=== PATIENT | male | born 1935 | race Caucasian/White ===

== ENCOUNTER 2018-12-03 20:40 | Inpatient (IN) | payer MEDICARE, OTHER ==
[~2018-12-03] VITALS: Ht 182.9 cm; Wt 95.6 kg
[2018-12-03] MEDS ORDERED: SODIUM CHLORIDE 0.9% 1,000 ML IV ONE (21:50)
[2018-12-03] MEDS ORDERED: MORPHINE SULFATE 4 MG/ML, 1ML IVPush PRN (22:00)
[2018-12-03] MEDS ORDERED: ONDANSETRON 2MG/ML, 2ML IVPush ONE (22:00)
[2018-12-03] MEDS ORDERED: SODIUM CHLORIDE FLUSH 10ML SYR IVF ONE (22:00)
[2018-12-03] MEDS ORDERED: OTC STOOL SOFTNER (22:16)
[2018-12-03] MEDS ORDERED: PARO40TA3 PO (22:16)
[2018-12-03] MEDS ORDERED: FESO8TAB PO (22:16)
[2018-12-03] MEDS ORDERED: TRAM50TA2 PO (22:16)
[2018-12-03] MEDS ORDERED: MULTIVITAMIN (22:16)
[2018-12-03] MEDS ORDERED: EZET1TAB64 PO (22:16)
[2018-12-03] MEDS ORDERED: ASPI-515 PO (22:16)
[2018-12-03] MEDS ORDERED: ACYC-113 PO (22:16)
[2018-12-03] MEDS ORDERED: TAMS-11 PO (22:16)
[2018-12-03] MEDS ORDERED: HYDR1TAB13 PO (22:16)
[2018-12-03] MEDS ORDERED: D3 (22:16)
[2018-12-03] MEDS ORDERED: ROPI1TAB2 PO (22:16)
[2018-12-03] MEDS ORDERED: B12 (22:16)
[2018-12-03] MEDS ORDERED: FINA5TAB4 PO (22:16)
[2018-12-03] MEDS ORDERED: CLOP75TA52 PO (22:16)
[2018-12-03] MEDS ORDERED: MORPHINE SULFATE 4 MG/ML, 1ML ONE (22:18)
[2018-12-03] MEDS ORDERED: ONDANSETRON 2MG/ML, 2ML ONE (22:18)
[2018-12-03 23:00] VITALS: BP 126/77
[2018-12-03] MEDS ORDERED: ONDANSETRON ODT 4 MG PO PRN (23:00)
[2018-12-03] MEDS ORDERED: POLYETHYLENE GLYCOL 17 GM PACKET PO PRN (23:00)
[2018-12-03] MEDS ORDERED: BISACODYL 10 MG SUPP PR PRN (23:00)
[2018-12-03] MEDS: SODIUM CHLORIDE FLUSH 10ML SYR IVF SCH (23:00)
[2018-12-04 00:26] VITALS: BP 114/61
[2018-12-04] MEDS: SODIUM CHLORIDE 0.9% 1,000 ML IV SCH ×2 (01:30→20:35)
[2018-12-04 04:17] LABS: BASOPHILS # (AUTO) 0.02 x10^3/uL (0-0.1); BASOPHILS % (AUTO) 0 % (0-1); EOSINOPHILS # (AUTO) 0.06 x10^3/uL (0-0.4); EOSINOPHILS % (AUTO) 1 % (1-7); LYMPHOCYTES # (AUTO) 1.28 x10^3/uL (1-3.4); LYMPHOCYTES % (AUTO) 24 % (22-44); MD NO; MEAN CORPUSCULAR HEMOGLOBIN 31.5 pg (27.5-34.5); MEAN CORPUSCULAR HGB CONC 32.3 g/dL (33.2-36.2); MEAN CORPUSCULAR VOLUME 97.5 fL (81-97); MEAN PLATELET VOLUME 6.7 fL (7.4-10.4); MONOCYTES # (AUTO) 0.88 x10^3/uL (0.2-0.8); MONOCYTES % (AUTO) 17 % (2-9); NEUTROPHILS # (AUTO) 3.05 x10^3/uL (1.8-6.8); NEUTROPHILS % (AUTO) 58 % (42-75); PLATELET COUNT 278 x10^3/uL (130-400); RED BLOOD COUNT 4.09 x10^6/uL (4.38-5.82); RED CELL DISTRIBUTION WIDTH 14.1 % (9.4-14.8)
[2018-12-04 04:23] LABS: ALBUMIN 2.8 g/dL (3.4-5.0); ANION GAP 3 mmol/L (5-15); CALCIUM 8.7 mg/dL (8.5-10.1); CHLORIDE 105 mmol/L (98-107)
[2018-12-04 04:27] LABS: ALANINE AMINOTRANSFERASE 25 U/L (12-78); ALKALINE PHOSPHATASE 95 U/L (45-117); BILIRUBIN,TOTAL 0.5 mg/dL (0.2-1.0); CREATININE 0.86 mg/dL (0.7-1.3); TOTAL PROTEIN 6.4 g/dL (6.4-8.2)
[2018-12-04 07:58] VITALS: BP 139/80
[2018-12-04] MEDS: ROPINIROLE 1MG TABLET PO SCH (08:04)
[2018-12-04] MEDS: EZETIMIBE 10 MG TABLET PO SCH (08:04)
[2018-12-04] MEDS: PAROXETINE 20 MG TABLET PO SCH (08:05)
[2018-12-04] MEDS: FINASTERIDE 5 MG TABLET PO SCH (08:05)
[2018-12-04] MEDS: TAMSULOSIN 0.4 MG CAP.ER.24H PO SCH (08:05)
[2018-12-04] MEDS: ACYCLOVIR 200 MG CAPSULE PO SCH (08:06)
[2018-12-04] MEDS: SIMVASTATIN 40 MG TABLET PO SCH (08:06)
[2018-12-04] MEDS: SODIUM CHLORIDE FLUSH 10ML SYR IVF SCH ×2 (08:08→20:35)
[2018-12-04] MEDS: FESOTERODINE FUMARATE 8 MG HOMEMEDPO SCH (08:08)
[2018-12-04 10:16] LABS: PROTHROMBIN TIME 10.5 Seconds (9.6-11.5)
[2018-12-04] MEDS: METHOCARBAMOL 500 MG TABLET PO PRN (12:00)
[2018-12-04] MEDS: HYDROcodone/APAP 5/325 TABLET PO PRN ×3 (13:50→22:39)
[2018-12-04 15:16] VITALS: BP 124/71
[2018-12-04 19:30] VITALS: BP 134/74
[2018-12-05] VITALS: BP 148/78
[2018-12-05 06:40] VITALS: BP 136/77
[2018-12-05] MEDS ORDERED: BUPIVACAINE/EPI 0.5% 1:200K ONE (08:06)
[2018-12-05] MEDS ORDERED: THROMBIN 20,000 UNIT VIAL TP ONE (08:06)
[2018-12-05] MEDS ORDERED: BACITRACIN 50,000 UNIT ONE (08:07)
[2018-12-05] MEDS ORDERED: BACITRACIN ZINC OINT 500U/GM, 0.9 GM ONE (08:07)
[2018-12-05] MEDS ORDERED: MIDAZOLAM 1 MG/ML, 2ML ONE (08:30)
[2018-12-05] MEDS ORDERED: FENTANYL PF 250 MCG/5ML ONE (08:30)
[2018-12-05] MEDS ORDERED: CEFAZOLIN 1,000 MG ONE ×2 (08:32)
[2018-12-05] MEDS ORDERED: WATER-INJECTION,STERILE 10 ML IV ONE (08:32)
[2018-12-05] MEDS ORDERED: PROPOFOL 10 MG/ML, 20ML ONE (08:33)
[2018-12-05] MEDS ORDERED: LIDOCAINE-MPF 2% ,5ML ONE (08:33)
[2018-12-05 08:57] LABS: PLATELET (PFA) 272 x10^3/uL (130-400)
[2018-12-05] MEDS: ACYCLOVIR 200 MG CAPSULE PO SCH (09:00)
[2018-12-05] MEDS: FINASTERIDE 5 MG TABLET PO SCH (09:00)
[2018-12-05] MEDS: EZETIMIBE 10 MG TABLET PO SCH (09:00)
[2018-12-05] MEDS: ROPINIROLE 1MG TABLET PO SCH (09:00)
[2018-12-05] MEDS: TAMSULOSIN 0.4 MG CAP.ER.24H PO SCH (09:00)
[2018-12-05] MEDS: PAROXETINE 20 MG TABLET PO SCH (09:00)
[2018-12-05] MEDS: SODIUM CHLORIDE FLUSH 10ML SYR IVF SCH ×2 (09:00→21:00)
[2018-12-05] MEDS: SIMVASTATIN 40 MG TABLET PO SCH (09:00)
[2018-12-05] MEDS: FESOTERODINE FUMARATE 8 MG HOMEMEDPO SCH (09:00)
[2018-12-05] MEDS ORDERED: ONDANSETRON 2MG/ML, 2ML ONE (09:05)
[2018-12-05] MEDS ORDERED: DEXAMETHASONE 4 MG/ML, 1ML ONE (09:05)
[2018-12-05] MEDS: SODIUM CHLORIDE 0.9% 1,000 ML IV SCH ×3 (09:11→20:24)
[2018-12-05] MEDS ORDERED: BUPIVACAINE/EPI 0.5% 1:200K INFIL ONE (10:03)
[2018-12-05] MEDS ORDERED: ROCURONIUM 10MG/ML,5ML ONE (10:06)
[2018-12-05] MEDS ORDERED: MEPERIDINE/PF 100 MG/ML ONE (10:20)
[2018-12-05] MEDS ORDERED: HYDROmorphone 2 MG/ML, 1ML IVPush PRN ×2 (11:00→16:00)
[2018-12-05] MEDS ORDERED: ACETAMINOPHEN 325 MG TABLET PO PRN ×2 (11:00→16:00)
[2018-12-05] MEDS ORDERED: MEPERIDINE/PF 25MG/0.5ML IVPush PRN (11:00)
[2018-12-05] MEDS ORDERED: FENTANYL PF 100 MCG/2ML IV PRN (11:00)
[2018-12-05] MEDS ORDERED: PROMETHAZINE 25 MG/ML, 1ML IV PRN (11:00)
[2018-12-05] MEDS ORDERED: hydrALAzine 20 MG/ML, 1ML IV PRN ×2 (11:00→16:00)
[2018-12-05] MEDS ORDERED: HALOPERIDOL 5 MG/ML IV PRN (11:00)
[2018-12-05] MEDS ORDERED: METHOCARBAMOL 1000MG/10 ML IV PRN (11:00)
[2018-12-05] MEDS ORDERED: OXYcodone 5 MG/5 ML ORAL.SOL UDC PO PRN (11:00)
[2018-12-05] MEDS ORDERED: SUGAMMADEX 200 MG/2 ML IVPush ONE (12:07)
[2018-12-05] MEDS ORDERED: OXYcodone 5 MG/5 ML ORAL.SOL UDC ONE (13:18)
[2018-12-05] MEDS ORDERED: DIPHENHYDRAMINE 25 MG CAPSULE PO PRN (16:00)
[2018-12-05] MEDS ORDERED: ACETAMINOPHEN 650 MG SUPP PR PRN (16:00)
[2018-12-05] MEDS ORDERED: ENALAPRILAT 1.25 MG/ML, 2ML IV PRN (16:00)
[2018-12-05] MEDS ORDERED: DIPHENHYDRAMINE 50 MG/ML, 1ML IV PRN (16:00)
[2018-12-05] MEDS: CEFAZOLIN PMX 1GM/50ML 50 ML IVPB SCH (17:09)
[2018-12-05 21:14] VITALS: BP 148/82
[2018-12-06 00:40] VITALS: BP 123/76
[2018-12-06] MEDS: CEFAZOLIN PMX 1GM/50ML 50 ML IVPB SCH (01:13)
[2018-12-06 04:37] VITALS: BP 136/70
[2018-12-06 05:35] LABS: CHLORIDE 106 mmol/L (98-107); MEAN CORPUSCULAR HGB CONC 32.9 g/dL (33.2-36.2); MEAN CORPUSCULAR VOLUME 97.3 fL (81-97); MEAN PLATELET VOLUME 6.7 fL (7.4-10.4); PLATELET COUNT 293 x10^3/uL (130-400); RED BLOOD COUNT 3.86 x10^6/uL (4.38-5.82); RED CELL DISTRIBUTION WIDTH 14.2 % (9.4-14.8)
[2018-12-06 05:41] LABS: ALANINE AMINOTRANSFERASE 21 U/L (12-78); ALBUMIN 2.1 g/dL (3.4-5.0); ALKALINE PHOSPHATASE 74 U/L (45-117); ANION GAP 5 mmol/L (5-15); BILIRUBIN,TOTAL 0.3 mg/dL (0.2-1.0); CALCIUM 8.3 mg/dL (8.5-10.1); CREATININE 0.79 mg/dL (0.7-1.3)
[2018-12-06] MEDS: HYDROcodone/APAP 5/325 TABLET PO PRN (05:47)
[2018-12-06 06:19] LABS: BASOPHILS # (AUTO) 0.01 x10^3/uL (0-0.1); BASOPHILS % (AUTO) 0 % (0-1); EOSINOPHILS % (AUTO) 0 % (1-7); LYMPHOCYTES # (AUTO) 0.78 x10^3/uL (1-3.4); LYMPHOCYTES % (AUTO) 8 % (22-44); MD SCAN; MONOCYTES # (AUTO) 1.17 x10^3/uL (0.2-0.8); MONOCYTES % (AUTO) 12 % (2-9); NEUTROPHILS # (AUTO) 8.16 x10^3/uL (1.8-6.8); NEUTROPHILS % (AUTO) 81 % (42-75)
[2018-12-06 07:19] VITALS: BP 124/73
[2018-12-06] MEDS: FESOTERODINE FUMARATE 8 MG HOMEMEDPO SCH (09:00)
[2018-12-06] MEDS: ACYCLOVIR 200 MG CAPSULE PO SCH (09:00)
[2018-12-06] MEDS: FINASTERIDE 5 MG TABLET PO SCH (09:00)
[2018-12-06] MEDS: EZETIMIBE 10 MG TABLET PO SCH (09:11)
[2018-12-06] MEDS: PAROXETINE 20 MG TABLET PO SCH (09:11)
[2018-12-06] MEDS: TAMSULOSIN 0.4 MG CAP.ER.24H PO SCH (09:11)
[2018-12-06] MEDS: SIMVASTATIN 40 MG TABLET PO SCH (09:11)
[2018-12-06] MEDS: SODIUM CHLORIDE FLUSH 10ML SYR IVF SCH ×2 (09:13→21:00)
[2018-12-06] MEDS: ROPINIROLE 1MG TABLET PO SCH (09:20)
[2018-12-06] MEDS: METHOCARBAMOL 500 MG TABLET PO PRN (11:36)
[2018-12-06] MEDS: ACETAMINOPHEN 325 MG TABLET PO PRN (11:36)
[2018-12-06 13:29] VITALS: BP 116/65
[2018-12-06] MEDS: SODIUM CHLORIDE 0.9% 1,000 ML IV SCH (18:31)
[2018-12-06 20:13] VITALS: BP 123/69
[2018-12-07] MEDS: HYDROcodone/APAP 5/325 TABLET PO PRN (01:57)
[2018-12-07] MEDS: METHOCARBAMOL 500 MG TABLET PO PRN ×2 (01:57→14:32)
[2018-12-07 03:00] VITALS: BP 137/81
[2018-12-07 05:52] LABS: ANION GAP 4 mmol/L (5-15); CHLORIDE 109 mmol/L (98-107)
[2018-12-07 05:54] LABS: CREATININE 0.78 mg/dL (0.7-1.3)
[2018-12-07 06:00] LABS: BASOPHILS # (AUTO) 0.03 x10^3/uL (0-0.1); BASOPHILS % (AUTO) 0 % (0-1); EOSINOPHILS # (AUTO) 0.02 x10^3/uL (0-0.4); EOSINOPHILS % (AUTO) 0 % (1-7); LYMPHOCYTES # (AUTO) 1.05 x10^3/uL (1-3.4); LYMPHOCYTES % (AUTO) 16 % (22-44); MD NO; MEAN CORPUSCULAR HEMOGLOBIN 31.6 pg (27.5-34.5); MEAN CORPUSCULAR HGB CONC 32.1 g/dL (33.2-36.2); MEAN CORPUSCULAR VOLUME 98.3 fL (81-97); MEAN PLATELET VOLUME 6.5 fL (7.4-10.4); MONOCYTES # (AUTO) 0.66 x10^3/uL (0.2-0.8); MONOCYTES % (AUTO) 10 % (2-9); NEUTROPHILS # (AUTO) 4.98 x10^3/uL (1.8-6.8); NEUTROPHILS % (AUTO) 74 % (42-75); PLATELET COUNT 296 x10^3/uL (130-400); RED BLOOD COUNT 3.61 x10^6/uL (4.38-5.82); RED CELL DISTRIBUTION WIDTH 14.4 % (9.4-14.8)
[2018-12-07] MEDS: SODIUM CHLORIDE 0.9% 1,000 ML IV SCH ×3 (08:00→16:00)
[2018-12-07 08:11] VITALS: BP 125/71
[2018-12-07] MEDS: SODIUM CHLORIDE FLUSH 10ML SYR IVF SCH ×2 (09:00→20:59)
[2018-12-07] MEDS: FESOTERODINE FUMARATE 8 MG HOMEMEDPO SCH (09:00)
[2018-12-07] MEDS: PAROXETINE 20 MG TABLET PO SCH (09:02)
[2018-12-07] MEDS: FINASTERIDE 5 MG TABLET PO SCH (09:02)
[2018-12-07] MEDS: TAMSULOSIN 0.4 MG CAP.ER.24H PO SCH (09:02)
[2018-12-07] MEDS: EZETIMIBE 10 MG TABLET PO SCH (09:02)
[2018-12-07] MEDS: SIMVASTATIN 40 MG TABLET PO SCH (09:02)
[2018-12-07] MEDS: ACYCLOVIR 200 MG CAPSULE PO SCH (09:02)
[2018-12-07] MEDS: ROPINIROLE 1MG TABLET PO SCH (09:02)
[2018-12-07] MEDS ORDERED: SENNA/DOCUSATE TABLET ONE (09:16)
[2018-12-07] MEDS ORDERED: SENNA/DOCUSATE TABLET PO PRN (09:30)
[2018-12-07 12:31] VITALS: BP 112/63
[2018-12-07] MEDS: ACETAMINOPHEN 325 MG TABLET PO PRN (14:32)
[2018-12-07 20:00] VITALS: BP 125/52
[2018-12-08] MEDS: METHOCARBAMOL 500 MG TABLET PO PRN (01:29)
[2018-12-08 02:17] VITALS: BP 144/85
[2018-12-08 08:00] VITALS: BP 140/78
[2018-12-08] MEDS: SODIUM CHLORIDE 0.9% 1,000 ML IV SCH ×2 (08:00)
[2018-12-08] MEDS: SODIUM CHLORIDE FLUSH 10ML SYR IVF SCH (09:00)
[2018-12-08] MEDS: FESOTERODINE FUMARATE 8 MG HOMEMEDPO SCH (09:00)
[2018-12-08] MEDS: ACYCLOVIR 200 MG CAPSULE PO SCH (09:00)
[2018-12-08] MEDS: ROPINIROLE 1MG TABLET PO SCH (09:14)
[2018-12-08] MEDS: TAMSULOSIN 0.4 MG CAP.ER.24H PO SCH (09:14)
[2018-12-08] MEDS: SIMVASTATIN 40 MG TABLET PO SCH (09:14)
[2018-12-08] MEDS: EZETIMIBE 10 MG TABLET PO SCH (09:14)
[2018-12-08] MEDS: PAROXETINE 20 MG TABLET PO SCH (09:14)
[2018-12-08] MEDS: FINASTERIDE 5 MG TABLET PO SCH (09:14)
[2018-12-08] MEDS ORDERED: METH500T7 PO (10:16)
[2018-12-08] MEDS ORDERED: MULT1TAB60 PO (10:16)
[2018-12-08] MEDS ORDERED: ACET325T14 PO (10:16)
[2018-12-08] MEDS ORDERED: POLY17PO5 PO (10:16)
[2018-12-08 13:55] VITALS: BP 119/77
[2018-12-08] MEDS ORDERED: TRAM50TA2 PO (14:29)
[2018-12-08] MEDS ORDERED: HYDR1TAB13 PO (14:29)
== END 2018-12-08 15:35 | DRG 471 ==
LOC: ED 22:04 → EDIP 22:10 → 4NOR 22:54
PROVIDERS: ADMIT Family Medicine; ATTEND Internal Medicine
PROC: 0HQ0XZZ Repair Scalp Skin, External Approach (ICD-10-PCS; 2018-12-03)
PROC: 5A09357 Assistance with Respiratory Ventilation, Less than 24 Consecutive Hours, Continuous Positive Airway Pressure (ICD-10-PCS; 2018-12-04)
PROC: 0RG0071 Fusion of Occipital-cervical Joint with Autologous Tissue Substitute, Posterior Approach, Posterior Column, Open Approach (ICD-10-PCS; 2018-12-05)
PROC: 5A09357 Assistance with Respiratory Ventilation, Less than 24 Consecutive Hours, Continuous Positive Airway Pressure (ICD-10-PCS; 2018-12-05)
PROC: 0PS304Z Reposition Cervical Vertebra with Internal Fixation Device, Open Approach (ICD-10-PCS; principal; 2018-12-05 09:00)
PROC: 5A09357 Assistance with Respiratory Ventilation, Less than 24 Consecutive Hours, Continuous Positive Airway Pressure (ICD-10-PCS; 2018-12-06)
PROC: 5A09357 Assistance with Respiratory Ventilation, Less than 24 Consecutive Hours, Continuous Positive Airway Pressure (ICD-10-PCS; 2018-12-07)
PROC: 5A09357 Assistance with Respiratory Ventilation, Less than 24 Consecutive Hours, Continuous Positive Airway Pressure (ICD-10-PCS; 2018-12-08)
DX: S12.111A Posterior displaced Type II dens fracture, initial encounter for closed fracture (principal); E43 Unspecified severe protein-calorie malnutrition; M17.11 Unilateral primary osteoarthritis, right knee; Z68.28 Body mass index [BMI] 28.0-28.9, adult; E78.5 Hyperlipidemia, unspecified; G89.11 Acute pain due to trauma; H91.90 Unspecified hearing loss, unspecified ear; I25.10 Atherosclerotic heart disease of native coronary artery without angina pectoris; I25.2 Old myocardial infarction; M50.30 Other cervical disc degeneration, unspecified cervical region; N40.0 Benign prostatic hyperplasia without lower urinary tract symptoms; W06.XXXA Fall from bed, initial encounter; Y99.8 Other external cause status; Y93.89 Activity, other specified; Y92.89 Other specified places as the place of occurrence of the external cause; Z79.02 Long term (current) use of antithrombotics/antiplatelets; Z95.5 Presence of coronary angioplasty implant and graft; Z96.652 Presence of left artificial knee joint; S01.01XA Laceration without foreign body of scalp, initial encounter; E11.9 Type 2 diabetes mellitus without complications
CPT/HCPCS: 36415; 70450; 71045; 72040; 72125; 80048; 80053; 85014; 85025; 85049; 85576; 85610; 93005; 96374; 96375; 99285; C1713; G0378; J0690; J1100; J2250; J2405; J2704; J3010; C1762; J2175; J2270; J7030

== ENCOUNTER → 2019-01-05 | Outpatient (CLI) | payer OTHER ==
[~2019-01-05] MED LIST: ACET325T14 PO; ACYC-113 PO; ASPI-515 PO; B12; CLOP75TA52 PO; D3; EZET1TAB64 PO; FESO8TAB PO; FINA5TAB4 PO; HYDR1TAB13 PO; METH500T7 PO; MULT1TAB60 PO; MULTIVITAMIN; OTC STOOL SOFTNER; PARO40TA3 PO; POLY17PO5 PO; ROPI1TAB2 PO; TAMS-11 PO; TRAM50TA2 PO
== END | disposition home or self-care (01) ==
LOC: CVU 14:35
PROVIDERS: ATTEND Internal Medicine Cardiovascular Disease
DX: I08.1 Rheumatic disorders of both mitral and tricuspid valves (principal); I25.2 Old myocardial infarction
CPT/HCPCS: 93306

== ENCOUNTER 2019-10-12 09:54 | Outpatient (CLI) | payer OTHER ==
[~2019-10-12 09:54] MED LIST changes: -EZET1TAB64 PO; +EZET1TAB65 PO; -ROPI1TAB2 PO; +ROPI1TAB4 PO
[2019-10-12 13:02] LABS: BASOPHILS # (AUTO) 0.02 x10^3/uL (0-0.1); BASOPHILS % (AUTO) 0 % (0-1); EOSINOPHILS # (AUTO) 0.06 x10^3/uL (0-0.4); EOSINOPHILS % (AUTO) 1 % (1-7); LYMPHOCYTES # (AUTO) 0.85 x10^3/uL (1-3.4); LYMPHOCYTES % (AUTO) 20 % (22-44); MD NO; MEAN CORPUSCULAR HEMOGLOBIN 28.5 pg (27.5-34.5); MEAN CORPUSCULAR HGB CONC 32.1 g/dL (33.2-36.2); MEAN CORPUSCULAR VOLUME 88.7 fL (81-97); MEAN PLATELET VOLUME 7.6 fL (7.4-10.4); MONOCYTES # (AUTO) 0.34 x10^3/uL (0.2-0.8); MONOCYTES % (AUTO) 8 % (2-9); NEUTROPHILS % (AUTO) 70 % (42-75); PLATELET COUNT 273 x10^3/uL (130-400); RED BLOOD COUNT 4.47 x10^6/uL (4.38-5.82); RED CELL DISTRIBUTION WIDTH 16.5 % (9.4-14.8)
[2019-10-12 13:08] LABS: ALBUMIN 3.3 g/dL (3.4-5.0); ANION GAP 6 mmol/L (5-15); CALCIUM 8.8 mg/dL (8.5-10.1); CHLORIDE 106 mmol/L (98-107)
[2019-10-12 13:19] LABS: ALANINE AMINOTRANSFERASE 20 U/L (12-78); ALKALINE PHOSPHATASE 88 U/L (45-117); BILIRUBIN,TOTAL 0.4 mg/dL (0.2-1.0); CHOL/HDL RATIO 2.4; CHOLESTEROL, TOTAL 161 mg/dL (140-239); CREATININE 0.99 mg/dL (0.7-1.3); HDL CHOL % 42 % (26-37); HDL CHOLESTEROL (DIRECT) 68 mg/dL (40-60); LDL CHOLESTEROL,CALCULATED 75 mg/dL (54-169); LDL/HDL RATIO 1.1 (0.5-3.0); T4 (THYROXINE) 8.2 mcg/dL (4.5-12.1); TOTAL PROTEIN 6.8 g/dL (6.4-8.2); TRIGLYCERIDES 88 mg/dL (50-200); VLDL CHOLESTEROL 18 mg/dL (0-25)
== END 2019-10-12 23:59 | disposition home or self-care (01) ==
LOC: CFH 09:54
PROVIDERS: ATTEND Internal Medicine Cardiovascular Disease
DX: E78.00 Pure hypercholesterolemia, unspecified (principal); I25.10 Atherosclerotic heart disease of native coronary artery without angina pectoris; M17.9 Osteoarthritis of knee, unspecified; R55 Syncope and collapse
CPT/HCPCS: 36415; 80053; 80061; 84436; 84443; 84481; 85025

== ENCOUNTER → 2019-12-30 | Outpatient (CLI) | payer OTHER ==
[~2019-12-30] MED LIST changes: +MULT-449 PO; -MULT1TAB60 PO
[2019-12-30 15:12] LABS: BASOPHILS # (AUTO) 0.01 x10^3/uL (0-0.1); BASOPHILS % (AUTO) 0 % (0-1); EOSINOPHILS # (AUTO) 0.11 x10^3/uL (0-0.4); EOSINOPHILS % (AUTO) 2 % (1-7); LYMPHOCYTES # (AUTO) 1.04 x10^3/uL (1-3.4); LYMPHOCYTES % (AUTO) 23 % (22-44); MD NO; MEAN CORPUSCULAR HEMOGLOBIN 28.2 pg (27.5-34.5); MEAN CORPUSCULAR HGB CONC 32.4 g/dL (33.2-36.2); MEAN CORPUSCULAR VOLUME 87.1 fL (81-97); MEAN PLATELET VOLUME 7.2 fL (7.4-10.4); MONOCYTES # (AUTO) 0.54 x10^3/uL (0.2-0.8); MONOCYTES % (AUTO) 12 % (2-9); NEUTROPHILS # (AUTO) 2.83 x10^3/uL (1.8-6.8); NEUTROPHILS % (AUTO) 63 % (42-75); PLATELET COUNT 274 x10^3/uL (130-400); RED BLOOD COUNT 4.03 x10^6/uL (4.38-5.82); RED CELL DISTRIBUTION WIDTH 16.5 % (9.4-14.8)
[2019-12-30 15:15] LABS: ANION GAP 4 mmol/L (5-15); CALCIUM 8.5 mg/dL (8.5-10.1); CHLORIDE 107 mmol/L (98-107)
[2019-12-30 15:50] LABS: ALANINE AMINOTRANSFERASE 22 U/L (12-78); ALKALINE PHOSPHATASE 75 U/L (45-117); BILIRUBIN,TOTAL 0.4 mg/dL (0.2-1.0); CHOL/HDL RATIO 2.1; CHOLESTEROL, TOTAL 145 mg/dL (140-239); CREATININE 0.89 mg/dL (0.7-1.3); HDL CHOL % 48 % (26-37); HDL CHOLESTEROL (DIRECT) 69 mg/dL (40-60); LDL CHOLESTEROL,CALCULATED 63 mg/dL (54-169); LDL/HDL RATIO 0.9 (0.5-3.0); TOTAL PROTEIN 6.5 g/dL (6.4-8.2); TRIGLYCERIDES 63 mg/dL (50-200); VLDL CHOLESTEROL 13 mg/dL (0-25)
== END | disposition home or self-care (01) ==
LOC: CFH 13:18
PROVIDERS: ATTEND Internal Medicine Cardiovascular Disease
DX: I25.10 Atherosclerotic heart disease of native coronary artery without angina pectoris (principal); E78.00 Pure hypercholesterolemia, unspecified; R55 Syncope and collapse; M17.9 Osteoarthritis of knee, unspecified
CPT/HCPCS: 36415; 80053; 80061; 84436; 84443; 84481; 85025

== ENCOUNTER → 2021-01-10 | Outpatient (CLI) | payer MEDICARE ==
[~2021-01-10] MED LIST changes: -ACYC-113 PO; +ACYC200C13 PO; -ASPI-515 PO; +ASPI-963 PO; +EZET-56 PO; -EZET1TAB65 PO; +FLUD0.1T PO; +METH-639 PO; -METH500T7 PO; +VIBE75TA PO
== END | disposition home or self-care (01) ==
LOC: STAR 11:07
PROVIDERS: ATTEND Orthopaedic Surgery
DX: Z01.818 Encounter for other preprocedural examination (principal); M17.11 Unilateral primary osteoarthritis, right knee; I44.4 Left anterior fascicular block; I45.10 Unspecified right bundle-branch block; R94.31 Abnormal electrocardiogram [ECG] [EKG]; Z20.822 Contact with and (suspected) exposure to COVID-19
CPT/HCPCS: 87081; 93005; U0003; U0005; 87147

== ENCOUNTER → 2021-02-08 | Outpatient (CLI) | payer MEDICARE ==
[~2021-02-08] MED LIST changes: +CARV3.1212 PO; +FURO40TA6 PO; +LISI5TAB7 PO; +MEMA5TAB PO; +OXYC5TAB98 PO; +SPIR25TA PO
== END | disposition home or self-care (01) ==
LOC: CFH 15:43
PROVIDERS: ATTEND Internal Medicine Cardiovascular Disease
DX: N32.89 Other specified disorders of bladder (principal); N13.2 Hydronephrosis with renal and ureteral calculous obstruction; K57.90 Diverticulosis of intestine, part unspecified, without perforation or abscess without bleeding
CPT/HCPCS: 76770